=== PATIENT | male | born 1975 | race Caucasian/White ===

== ENCOUNTER 2018-03-27 23:30 | Emergency (ER) | payer MEDICAID, SELFPAY ==
[2018-03-27 23:38] VITALS: BP 122/83; PULSE 90; RESP 18; TEMP 37.1; O2SAT 96
[2018-03-28] MEDS: Amoxicillin 875/Clav. 125 TAB PO (00:12)
--- NOTE | 2018-03-28 00:13 | W.ED.GENAD ---
Discharge Plan Disposition Patient Disposition: HOME Condition: Good Discharge Details Chief Complaint: Laceration Clinical Impression: Laceration of lip Primary Care Provider: Melvina Martinez ED Provider: Humza Snider Home Meds and New Rx's Prescriptions: New amoxicillin-pot clavulanate [Augmentin] 875-125 mg tablet 1 tab PO BID Qty: 14 RF: 0 No Action triamcinolone acetonide 15 GM cream 1 appful Topical BID Qty: 30 RF: 6 ranitidine HCl [Zantac] 300 MG tablet 300 mg PO BID Qty: 180 RF: 3 buspirone 30 MG tablet 30 mg PO BID Qty: 180 RF: 3 gabapentin 300 MG capsule 300 mg PO TID Qty: 90 RF: 3 dextroamphetamine-amphetamine [Adderall XR] 5 MG capsule,extended release 24hr 5 mg PO DAILY Qty: 30 RF: 0 Discharge Instructions Instructions: Laceration (ED), Care For Your Absorbable Stitches (ED) Additional Instructions: Please take the antibiotic as directed. Please do not rub or scrub the sutured area. Please take Tylenol and Motrin as needed for pain. If you notice any redness, swelling, drainage, or fever please return immediately. The sutures will fall out on their own in 7-10 days. If you notice any worsening of your symptoms, or any new symptoms such as vomiting, diarrhea, fever, chills, shortness of breath, chest pain, numbness, weakness, or fainting , please return immediately to the emergency department for reevaluation. Please follow up with your primary care provider as soon as possible for reassessment and reevaluation. As always, it was a pleasure participating in your medical care today. Referrals: Melvina Martinez, DATA CENTER ENGINEER [Primary Care Provider] - Medical Decision Making This is a 43-year-old male who [facility] after cutting his left upper lip on a metal bedpost. He denies any other trauma he denies any loss of consciousness. Physical exam does demonstrate laceration over the left upper lip shows no other abnormalities, no other signs of trauma. He does have an old fractured front upper tooth, however he states that this is old. The patient's lip was anesthetized with 3cc of 1% lidocaine, the area was then irrigated with copious amounts of normal saline, and scrubbed vigorously with a normal saline chlorhexidine mixture. The area was then irrigated with high-powered saline. After proper washing and cleaning the area was sutured with 8 simple interrupted sutures using 5-0 chromic gut. The patient tolerated this well. His tetanus is up-to-date. He was given 1 pill of Augmentin here, and a prescription for home use. We discussed red flags which to return the patient understands. I have extensively reviewed the treatment plan and discharge instructions with the patient. I have addressed all patient concerns at this time. The patient was made aware of what symptoms to monitor for that would warrant a return to the emergency department. Discussed the plan with the patient, they demonstrate verbal understanding and agreement with our assessment and plan at this time. HPI General Date/Time Provider Initiated Documentation: 03/28/18 00:03. HPI Narrative: This is a 43-year-old male who presents for evaluation of laceration. He is in penit[facility]iary, and he slipped off his bunk and hit his left upper lip on a small metal pole. Tetanus was updated within the last 4 years. Aside for the complaint of the laceration on his left upper lip he denies any other complaints. He denies any looseness for his teeth, pain in his jaw, headache, loss of consciousness, blood thinner use, or any other complaints. Related Data Home Medications Medication Instructions Recorded Confirmed buspirone 30 mg PO BID #180 tab-cap 06/12/16 dextroamphetamine-amphetamine 5 mg PO DAILY #30 tab-cap 06/12/16 [Adderall Xr 5mg Capsule Sa] gabapentin 300 mg PO TID #90 tab-cap 06/12/16 ranitidine HCl [Zantac] 300 mg PO BID #180 tab-cap 06/12/16 triamcinolone acetonide 1 appful TOPICAL BID #30 script 06/12/16 amoxicillin-pot clavulanate 1 tab PO BID #14 tab 03/28/18 [Augmentin] Previous Rx's Medication Instructions Recorded amoxicillin-pot clavulanate 1 tab PO BID #14 tab 03/28/18 [Augmentin] Allergies Allergy/AdvReac Type Severity Reaction Status Date / Time codeine Allergy Unknown Hives Unverified 06/04/16 13:44 green pepper Allergy Unknown Unverified 06/04/16 13:44 onion Allergy Unknown Unverified 06/04/16 13:44 tomato Allergy Unknown Unverified 06/04/16 13:44 red pepper Allergy Unknown Uncoded 06/04/16 13:45 General Stated Complaint: Laceration YONG: 4 Review of Systems Review of Systems All systems reviewed & are unremarkable except as noted in HPI and below Exam Narrative Exam Narrative: 1.Const: Well-nourished, Well-developed, appearing stated age 2.Eyes: PERRL, no conjunctival injection, and symmetrical lids. 3.ENT: Atraumatic external nose and ears. Moist MM. Neck: Symmetric, trachea midline, No thyromegaly. There is no evidence of raccoon eyes, gold sign, CSF rhinorrhea, mastoid tenderness, cranial crepitus, hemotympanum, exophthalmos, or hyphema. Patient demonstrates intact dentition with no signs of tooth avulsion or fracture, no signs of jaw deformity, no evidence of a LeFort's fracture, with an intact palate, nose and orbital region. There is no evidence of a nasal septal hematoma. No proptosis. Jaw closes symmetrically. Airway is clear. No significant loose teeth. Patient demonstrates a U-shaped 1.5 cm laceration of the left upper lip. It does appeared to extend to the vermilion border and then back down and around. No other significant signs of trauma or abnormalities. 4.CVS: +S1/S2, No murmurs or gallops. Peripheral pulses 2+ and equal in all extremities. Brisk capillary refill in all extremities. 5.RESP: Unlabored respiratory effort. Clear to auscultation bilaterally. No wheezes rales or rhonchi 6.GI: Soft, Nontender/Nondistended, No hepatosplenomegaly. No guarding or rebound. 7.MSK: Normocephalic/Atraumatic, Extremities w/o deformity or ttp No cyanosis or clubbing, Normal movement of all extremities Course Vital Signs Temperature 37.1 C 03/27/18 23:38 Pulse 90 03/27/18 23:38 Respiratory Rate 18 03/27/18 23:38 Blood Pressure 122/83 03/27/18 23:38 Pulse Oximetry 96 03/27/18 23:38 Temperature 37.1 C 03/27/18 23:38 Temperature Source Temporal Artery Scan 03/27/18 23:38 Pulse 90 03/27/18 23:38 Respiratory Rate 18 03/27/18 23:38 Blood Pressure 122/83 03/27/18 23:38 Blood Pressure Position Sitting 03/27/18 23:38 Pulse Oximetry 96 03/27/18 23:38 Oxygen Delivery Method Room Air 03/27/18 23:38 Oxygen Flow Rate 0 03/27/18 23:38
--- NOTE | 2018-03-28 00:21 | ED.GENADUL_ITS ---
Discharge Plan Disposition Patient Disposition: HOME Condition: Good Discharge Details Chief Complaint: Laceration Clinical Impression: Laceration of lip Primary Care Provider: Melvina Martinez ED Provider: Humza Snider Home Meds and New Rx's Prescriptions: New amoxicillin-pot clavulanate [Augmentin] 875-125 mg tablet 1 tab PO BID Qty: 14 RF: 0 No Action triamcinolone acetonide 15 GM cream 1 appful Topical BID Qty: 30 RF: 6 ranitidine HCl [Zantac] 300 MG tablet 300 mg PO BID Qty: 180 RF: 3 buspirone 30 MG tablet 30 mg PO BID Qty: 180 RF: 3 gabapentin 300 MG capsule 300 mg PO TID Qty: 90 RF: 3 dextroamphetamine-amphetamine [Adderall XR] 5 MG capsule,extended release 24hr 5 mg PO DAILY Qty: 30 RF: 0 Discharge Instructions Instructions: Laceration (ED), Care For Your Absorbable Stitches (ED) Additional Instructions: Please take the antibiotic as directed. Please do not rub or scrub the sutured area. Please take Tylenol and Motrin as needed for pain. If you notice any redness, swelling, drainage, or fever please return immediately. The sutures will fall out on their own in 7-10 days. If you notice any worsening of your symptoms, or any new symptoms such as vomiting, diarrhea, fever, chills, shortness of breath, chest pain, numbness, weakness, or fainting , please return immediately to the emergency department for reevaluation. Please follow up with your primary care provider as soon as possible for reassessment and reevaluation. As always, it was a pleasure participating in your medical care today. Referrals: Melvina Martinez, THERAPY MANAGER [Primary Care Provider] - Medical Decision Making This is a 43-year-old male who presents from senior living after cutting his left upper lip on a metal bedpost. He denies any other trauma he denies any loss of consciousness. Physical exam does demonstrate laceration over the left upper lip shows no other abnormalities, no other signs of trauma. He does have an old fractured front upper tooth, however he states that this is old. The patient's lip was anesthetized with 3cc of 1% lidocaine, the area was then irrigated with copious amounts of normal saline, and scrubbed vigorously with a normal saline chlorhexidine mixture. The area was then irrigated with high- powered saline. After proper washing and cleaning the area was sutured with 8 simple interrupted sutures using 5-0 chromic gut. The patient tolerated this well. His tetanus is up-to-date. He was given 1 pill of Augmentin here, and a prescription for home use. We discussed red flags which to return the patient understands. I have extensively reviewed the treatment plan and discharge instructions with the patient. I have addressed all patient concerns at this time. The patient was made aware of what symptoms to monitor for that would warrant a return to the emergency department. Discussed the plan with the patient, they demonstrate verbal understanding and agreement with our assessment and plan at this time. HPI General Date/Time Provider Initiated Documentation: 03/28/18 00:03 . HPI Narrative: This is a 43-year-old male who presents for evaluation of laceration. He is in senior living, and he slipped off his bunk and hit his left upper lip on a small metal pole. Tetanus was updated within the last 4 years. Aside for the complaint of the laceration on his left upper lip he denies any other complaints. He denies any looseness for his teeth, pain in his jaw, headache, loss of consciousness, blood thinner use, or any other complaints. Related Data Home Medications Medication Instructions Recorded Confirmed buspirone 30 mg PO BID #180 tab-cap 06/12/16 dextroamphetamine-amphetamine 5 mg PO DAILY #30 tab-cap 06/12/16 [Adderall Xr 5mg Capsule Sa] gabapentin 300 mg PO TID #90 tab-cap 06/12/16 ranitidine HCl [Zantac] 300 mg PO BID #180 tab-cap 06/12/16 triamcinolone acetonide 1 appful TOPICAL BID #30 script 06/12/16 amoxicillin-pot clavulanate 1 tab PO BID #14 tab 03/28/18 [Augmentin] Previous Rx's Medication Instructions Recorded amoxicillin-pot clavulanate 1 tab PO BID #14 tab 03/28/18 [Augmentin] Allergies Allergy/AdvReac Type Severity Reaction Status Date / Time codeine Allergy Unknown Hives Unverified 06/04/16 13:44 green pepper Allergy Unknown Unverified 06/04/16 13:44 onion Allergy Unknown Unverified 06/04/16 13:44 tomato Allergy Unknown Unverified 06/04/16 13:44 red pepper Allergy Unknown Uncoded 06/04/16 13:45 General Stated Complaint: Laceration YONG: 4 Review of Systems Review of Systems All systems reviewed & are unremarkable except as noted in HPI and below Exam Narrative Exam Narrative: 1.Const: Well-nourished, Well-developed, appearing stated age 2.Eyes: PERRL, no conjunctival injection, and symmetrical lids. 3.ENT: Atraumatic external nose and ears. Moist MM. Neck: Symmetric, trachea midline, No thyromegaly. There is no evidence of raccoon eyes, gold sign, CSF rhinorrhea, mastoid tenderness, cranial crepitus, hemotympanum, exophthalmos , or hyphema. Patient demonstrates intact dentition with no signs of tooth avulsion or fracture, no signs of jaw deformity, no evidence of a LeFort's fracture, with an intact palate, nose and orbital region. There is no evidence of a nasal septal hematoma. No proptosis. Jaw closes symmetrically. Airway is clear. No significant loose teeth. Patient demonstrates a U-shaped 1.5 cm laceration of the left upper lip. It does appeared to extend to the vermilion border and then back down and around. No other significant signs of trauma or abnormalities. 4.CVS: +S1/S2, No murmurs or gallops. Peripheral pulses 2+ and equal in all extremities. Brisk capillary refill in all extremities. 5.RESP: Unlabored respiratory effort. Clear to auscultation bilaterally. No wheezes rales or rhonchi 6.GI: Soft, Nontender/Nondistended, No hepatosplenomegaly. No guarding or rebound. 7.MSK: Normocephalic/Atraumatic, Extremities w/o deformity or ttp No cyanosis or clubbing, Normal movement of all extremities Course Vital Signs Temperature 37.1 C 03/27/18 23:38 Pulse 90 03/27/18 23:38 Respiratory Rate 18 03/27/18 23:38 Blood Pressure 122/83 03/27/18 23:38 Pulse Oximetry 96 03/27/18 23:38 Temperature 37.1 C 03/27/18 23:38 Temperature Source Temporal Artery Scan 03/27/18 23:38 Pulse 90 03/27/18 23:38 Respiratory Rate 18 03/27/18 23:38 Blood Pressure 122/83 03/27/18 23:38 Blood Pressure Position Sitting 03/27/18 23:38 Pulse Oximetry 96 03/27/18 23:38 Oxygen Delivery Method Room Air 03/27/18 23:38 Oxygen Flow Rate 0 03/27/18 23:38
[2018-03-28 00:23] VITALS: BP 122/83; PULSE 90; RESP 18; TEMP 37.1; O2SAT 96
== END 2018-03-28 00:47 | disposition home or self-care (01) ==
PROVIDERS: Emergency Provider Student in an Organized Health Care Education/Training Program; PCP Nurse Practitioner
DX: S01.511A Laceration without foreign body of lip, initial encounter (principal); W06.XXXA Fall from bed, initial encounter; W26.8XXA Contact with other sharp object(s), not elsewhere classified, initial encounter; Y92.143 Cell of prison as the place of occurrence of the external cause
CPT/HCPCS: 12011